=== PATIENT | male | born 1960 | race Caucasian/White ===

== ENCOUNTER → 2016-10-01 | Outpatient (CLI) | payer BC ==
[2016-10-01 09:16] LABS: BLOOD UREA NITROGEN 19 mg/dL (7-22); BUN/CREATININE RATIO 23.75 (6-20); CALCIUM 9.4 mg/dL (8.7-10.7); EST GLOMERULAR FILTRATION > 60 (>60 ml/min/1.73m(2))
[2016-10-01 09:17] LABS: SERUM ALBUMIN 4.2 g/dL (3.5-4.8)
[2016-10-01 14:23] LABS: HEMOGLOBIN A1C 10.62 % (4.2-6.0)
== END ==
LOC: LAB 07:42
DX: R73.9 Hyperglycemia, unspecified (principal); E78.5 Hyperlipidemia, unspecified; I10 Essential (primary) hypertension; R94.5 Abnormal results of liver function studies
CPT/HCPCS: 36415; 80053; 83036

== ENCOUNTER → 2016-10-06 | Outpatient (CLI) | payer BC | LOC: MOB LAB 11:37 | DX: E11.9 Type 2 diabetes mellitus without complications (principal) | CPT/HCPCS: 36415; 84681 ==